=== PATIENT | male | born 1990 | race African-American/Black ===

== ENCOUNTER 2016-12-16 11:37 | Emergency (ER) | payer OTHER ==
[~2016-12-16] VITALS: Ht 172.7 cm; Wt 68.0 kg
[2016-12-16 11:41] VITALS: BP 144/70
--- NOTE | 2016-12-16 12:31 | ED NOSE COMPLAINT ---
History of Present Illness General Chief Complaint: Epistaxis/Nasal Foreign Body Stated Complaint: FREQUENT NOSEBLEEDS X 1WK PER PT, NONE NOW Source: patient Exam Limitations: no limitations Vital Signs & Intake/Output Vital Signs & Intake/Output Vital Signs Date Time Temp Pulse Resp B/P B/P Pulse O2 O2 Flow FiO2 Mean Ox Delivery Rate 12/16 1141 99.0 88 20 144/70 99 Room Air Triage Note: FREQUENT NOSEBLEEDS X 1 WEEK. STATES HE HAD ONE EARLIER TODAY WHICH RESOLVED Triage Nurses Notes Reviewed? yes Onset: Gradual Duration: week(s): (1) Timing: remote history Injury Environment: home Severity: moderate Severity Numbers: 5 Modifying Factors: Improves With: other (TIME). HPI: Patient is a 26-year-old male presenting to the emergency department with chief complaint of cramping on and for the past one week. He reports 1-2 episodes daily. Unsure how long they last but the last "a while". Denies being on any blood thinners. No trauma to the nose. He does report seasonal allergies, does not take anything to help. He nausea or vomiting fevers or chills. He had an episode earlier today which has resolved. No headaches. Currently asymptomatic. (TERA PIEDRA) Allergies Coded Allergies: shellfish derived (Severe, ANAPHYLAXIS 12/16/16) tree nut (Severe, ANAPHYLAXIS 12/16/16) Reconcile Medications No Known Home Medications (HERNANDO GONZALEZ DO) Past History Travel History Traveled to [place] past 21 day No Medical History Any Pertinent Medical History? see below for history Surgical History Surgical History: non-contributory Psychosocial History What is your primary language Monegasque Tobacco Use: Never used ETOH Use: occasional use Illicit Drug Use: denies illicit drug use Family History Hx Contributory? No (TERA PIEDRA) Review of Systems Review of Systems Constitutional: Reports: no symptoms. Comments Review of systems: See HPI, All other systems negative. Constitutional, no chills fever or weight loss HEENT: No visual changes no sore throat no congestion Cardiovascular: No chest pain ,palpitation Skin, no jaundice no rashes Respiratory: No dyspnea cough sputum or hemoptysis GI: No nausea no vomiting Muscle skeletal: no back pain, no neck pain, Neurologic: No numbness no confusion Psych: No stress aNXIETY ENDOCRINE: no polyuria or polydipsia Immunology: No splenectomy or history of AIDS (TERA PIEDRA) Physical Exam Physical Exam General Appearance: well developed/nourished, no apparent distress, alert, awake , comfortable Nose: DRIED BLOOD IN THE LEFT Wills. nO SEPTAL HEMATOMA. Comments: Well-developed well-nourished person in no acute distress HEENT: Pupils equally round and reactive to light and accommodation. Nose is atraumatic. External auditory canal and Tympanic membranes clear. Pharynx normal. No swelling or edema. Dry blood noted in the left Wills. No septal hematoma. Neck: Supple, no lymphadenopathy, normal range of motion without pain or tenderness Back: Nontender Cardiovascular: Regular rate and rhythms no murmurs rubs or gallops, normal JVP Respiratory: Chest nontender. No respiratory distress.breath sounds clear to auscultation bilaterally Extremity: No edema Neuro: Alert oriented x3, motor sensory normal Skin: No appreciable rash on exposed skin, skin is warm and dry. Psych: Mood and affect is normal, memory and judgment is normal. (TERA PIEDRA) Progress Differential Diagnoses I considered the following diagnoses in my evaluation of the patient: Anterior epistaxis, posterior epistaxis Plan of Care: Patient currently not having any nosebleed. Patient will apple picker Afrin over-the -counter and follow up with ENT as needed. No history of trauma. No signs of septal hematoma. Nothing to do at this time. Patient cleared for discharge. Initial ED EKG: none (TERA PIEDRA) Departure Departure Time of Disposition: 1230 Disposition: HOME OR SELF CARE Condition: Stable Clinical Impression Primary Impression: Epistaxis Referrals: CUONG CABRERA MD. PATIENT HAS NO PRIMARY CARE DR (PCP/Family) Additional Instructions: Follow-up with Dr. Cabrera, ENT, call to make an appointment. Use Afrin over-the- counter as directed a few feel like a nosebleed is coming on. This will help constrict blood vessels and stop bleeding. Increase fluid intake. Avoid sticking anything in your nose. Consider taking daily allergy medication as well. Departure Forms: Customer Survey General Discharge Information (TERA PIEDRA) Departure Prescriptions: Current Visit Scripts No Known Home Medications PA/REGULATORY LEAD Co-Sign Statement Statement: ED Attending supervision documentation- [] I saw and evaluated the patient. I have also reviewed all the pertinent lab results and diagnostic results. I agree with the findings and the plan of care as documented in the PA's/REGULATORY LEAD's documentation. [x] I have reviewed the ED Record and agree with the PA's/REGULATORY LEAD's documentation. [] Additions or exceptions (if any) to the PAs/REGULATORY LEAD's note and plan are summarized below: [] (HERNANDO GONZALEZ DO)
== END 2016-12-16 12:36 ==
LOC: ERH 11:37
DX: R04.0 Epistaxis (principal)
CPT/HCPCS: 99282